=== PATIENT | male | born 1965 | race Caucasian/White ===

== ENCOUNTER 2016-10-18 09:34 | Day surgery (SDC) | payer OTHER ==
[~2016-10-18 09:34] MED LIST: Buffered Lidocaine 1% SYR 3ML* 3 ML/SYR SYRINGE INTRADERM ONE; Sodium Citrate/Citric Acid* 15 ML UDC PO ONE
[2016-10-18] MEDS ORDERED: Sodium Citrate/Citric Acid* 15 ML UDC ONE (09:37)
[2016-10-18] MEDS ORDERED: Gelfoam Sponge SIZE 100* SPONGE ONE (11:17)
[2016-10-18] MEDS ORDERED: EPINEPHrine AMP 1 MG/ML ONE (11:17)
[2016-10-18] MEDS ORDERED: Ciprofloxacin 0.3% OPTH.SOL* 2.5 ML BTL ONE (11:17)
[2016-10-18] MEDS ORDERED: Lidocain 1% EPI 1:100,000 * 30 ML MDV ONE (11:17)
[2016-10-18] MEDS ORDERED: Levalbuterol 1.25MG/0.5ML NEB ONE (11:30)
[2016-10-18] MEDS ORDERED: Midazolam* 1 MG/ML 2 ML VIAL (2 MG) ONE (11:35)
[2016-10-18] MEDS ORDERED: Lidocaine 2% PF * 5 ML VIAL ONE (11:35)
[2016-10-18] MEDS ORDERED: Propofol* 10 MG/ML 20 ML BTL IV PUSH ONE ×2 (11:35→12:56)
[2016-10-18] MEDS ORDERED: fentaNYL* 50 MCG/ML 2 ML VIAL (100 MCG VIAL) ONE (11:36)
[2016-10-18] MEDS ORDERED: fentaNYL* 50 MCG/ML 2 ML VIAL (100 MCG VIAL) IV PRN (12:51)
[2016-10-18] MEDS ORDERED: DiMENhydriNATE IV* 50 MG/ML VIAL IV PUSH PRN (12:52)
[2016-10-18] MEDS ORDERED: Dexamethasone IV* 4 MG/ML 1 ML (4 MG) ONE (13:01)
[2016-10-18 14:04] VITALS: BP 132/82
--- NOTE | 2016-10-19 03:46 | OP ---
DATE OF OPERATION: 10/18/16 [facility] DATE OF : 61 SURGEON: Errol De La Vega MD POWDER GUARD: None. ANESTHESIOLOGIST: Jesús Montes DO ANESTHESIA: General. PRE-OP DIAGNOSIS: Bilateral mixed hearing loss. POST-OP DIAGNOSIS: Left serous otitis media. OPERATIVE PROCEDURE: Left middle ear exploration. ESTIMATED BLOOD LOSS: Negligible. FINDINGS: Unexpected serous effusion in the left middle ear space. SPECIMEN: A small amount of this was collected and sent for beta-2 transferrin. INDICATION: This is a 50-year-old male with a longstanding history of progressive hearing loss, which he thinks started in his teens. He now has severe bilateral mixed hearing loss with a very large conductive component. The patient under-went a preoperative CT scan, which demonstrated normal temporal bone anatomy with well-pneumatized mastoid bones and clear middle ear spaces. The decision was made to proceed with left stapedectomy for treatment of probable otosclerosis. DESCRIPTION OF PROCEDURE: On 10/18/16, the patient was brought to the operating room. General anesthesia was induced and an LMA was placed. The patient's left ear was then draped with a 10/10 drape and Mastisol. The left ear was then prepped with Betadine and the patient was draped in the sterile fashion. A time-out was performed. The microscope was brought into the field. The left ear was irrigated to remove Betadine. The tympanic membrane was inspected. The tympanic membrane was at baseline, dull and opaque and there was no evidence of retraction. There was no cerumen in the ear canal. No indication that there was middle ear fluid present. A small injection was made with lidocaine with epinephrine into the vascular strip. A sickle knife was used to make radial incisions in the ear canal at 12 and 6 o'clock. These incisions were then connected with an angled north fork blade and then a small piece of epi-soaked Gelfoam was placed on the incisions. Once adequate time was allowed for hemostasis, the Gelfoam was removed. The Stapes retractor was brought into place and a 6-mm speculum was affixed to the Stapes retractor and the patient was positioned. A round knife was used to elevate the tympanomeatal flap. The middle ear was entered inferiorly. As soon as the tympanic annulus was elevated, straw colored fluid welled up out in the middle ear space. This was suctioned with a #3 suction. The tympanomeatal flap was elevated a little more fully superiorly. There was essentially pulsatile, though very slow reaccumulation of the serous fluid in the middle ear space. The middle ear was explored to the extent possible without removing any __ bone. There was no purulence present. There was no inflammation of the middle ear mucosa. The source of the effusion was unclear. A small amount was then harvested, aspirated with 1 cc syringe and sent as specimen for beta-2 transferrin. The reaccumulation was extremely slow but persistent and so, the decision was made to abort the intended stapedectomy. The tympanomeatal flap was placed back down. Gelfoam was placed into the medial canal along the edges of the incision and a cotton ball was placed. The patient was then returned to the care of the anesthesiologist, extubated and delivered to the PACU in stable condition. [id number] #: [id number] MTDD
== END 2016-10-18 13:55 | disposition home or self-care (01) ==
LOC: OR 09:34
PROVIDERS: ATTEND Otolaryngology
DX: H91.92 Unspecified hearing loss, left ear (principal); H65.92 Unspecified nonsuppurative otitis media, left ear
CPT/HCPCS: 86335; A9270-GY; J0171; J1100; J2250; J2704; J3010

== ENCOUNTER 2017-05-16 08:20 | Day surgery (SDC) | payer OTHER ==
[~2017-05-16 08:20] MED LIST changes: +Buffered Lidocaine 0.9% SYRIN* 5 ML/SYR SYRINGE INTRADERM ONE; -Buffered Lidocaine 1% SYR 3ML* 3 ML/SYR SYRINGE INTRADERM ONE; +Famotidine TAB* 20 MG PO ONE; +Scopolamine 1.5 mg* PATCH TRANSDERM ONE
[2017-05-16] MEDS ORDERED: Famotidine TAB* 20 MG ONE (08:29)
[2017-05-16] MEDS ORDERED: Buffered Lidocaine 0.9% SYRIN* 5 ML/SYR SYRINGE ONE (08:29)
[2017-05-16] MEDS ORDERED: Scopolamine 1.5 mg* PATCH ONE (08:29)
[2017-05-16] MEDS ORDERED: Sodium Citrate/Citric Acid* 15 ML UDC ONE (08:29)
[2017-05-16] MEDS ORDERED: EPINEPHrine AMP 1 MG/ML ONE (08:48)
[2017-05-16] MEDS ORDERED: Ciprofloxacin 0.3% OPTH.SOL* 2.5 ML BTL ONE (08:48)
[2017-05-16] MEDS ORDERED: Lidocaine 1% MPF wEPI 200,000* 30 ML SDV ONE (08:48)
[2017-05-16] MEDS ORDERED: Gelfoam Sponge SIZE 100* SPONGE ONE (08:49)
[2017-05-16] MEDS ORDERED: Bacitracin OINTMENT* 1 TUBE ONE (08:49)
[2017-05-16] MEDS ORDERED: Dexamethasone IV* 4 MG/ML 1 ML (4 MG) ONE (11:32)
[2017-05-16] MEDS ORDERED: Succinylcholine* 20 MG/ML 10 ML VIAL ONE (11:32)
[2017-05-16] MEDS ORDERED: Propofol* 10 MG/ML 20 ML BTL IV PUSH ONE (11:32)
[2017-05-16] MEDS ORDERED: Ondansetron INJ* 2 MG/ML VIAL ONE (11:32)
[2017-05-16] MEDS ORDERED: fentaNYL* 50 MCG/ML 2 ML VIAL (100 MCG VIAL) ONE ×3 (11:32→13:44)
[2017-05-16] MEDS ORDERED: Lidocaine 2% PF * 5 ML VIAL ONE (11:34)
[2017-05-16] MEDS ORDERED: DiMENhydriNATE IV* 50 MG/ML VIAL IV PUSH PRN (12:19)
[2017-05-16] MEDS: fentaNYL* 50 MCG/ML 2 ML VIAL (100 MCG VIAL) IV PRN ×2 (13:45→13:56)
[2017-05-16] MEDS: oxyCODONE/Acetamin 5/325 MG* TAB PO PRN ×2 (13:51→13:52)
[2017-05-16] MEDS ORDERED: oxyCODONE/Acetamin 5/325 MG* TAB ONE (13:51)
[2017-05-16 15:13] VITALS: BP 139/78
--- NOTE | 2017-05-17 01:53 | OP ---
DATE OF OPERATION: 05/16/17 [facility] DATE OF : 61 SURGEON: Errol De La Vega MD SAFETY TECH: None. ANESTHESIA: General. PRE-OP DIAGNOSIS: Otosclerosis, left ear. POST-OP DIAGNOSIS: Otosclerosis, left ear. OPERATIVE PROCEDURE: Left stapedectomy. ESTIMATED BLOOD LOSS: Negligible. FINDINGS: Fixed stapes consistent with otosclerosis. INDICATION: This is a 51-year-old male with longstanding progressive bilateral mixed hearing loss predominantly conductive, who presents for elective left stapedectomy. DESCRIPTION OF PROCEDURE: On 05/16/17, the patient was brought to the operating room, general anesthesia was induced and an oral endotracheal tube was placed. The patient was positioned. The left ear was prepped with Betadine. The patient was draped sterilely and a time-out was performed. The ear was suctioned free of Betadine and copiously irrigated. A 4-quadrant canal injection was made with 1% lidocaine with epinephrine. Radial incisions were then made with a sickle knife at 12 and 6 o'clock. These were drained with a posterior circumferential incision using an angled [place] blade. A piece of epinephrine-soaked Gelfoam was then left in place for approximately 5 minutes. At that point, the Gelfoam was removed. A tympanomeatal flap was elevated. The middle ear was inspected. Middle ear mucosa appeared healthy. The ossicular chain was palpated. There was fixation of the stapes. The scutum was taken down with curette to facilitate exposure of the posterior gio. The joint knife was used to separate the incudostapedial joint. Bellucci scissor was used then to severe the stapedius tendon. The stapes suprastructure was then downfractured with a curved pick and removed exposing the footplate region. The laser was brought into the field at a setting of 2 smith and 100 msec. The laser was then utilized to create a mark approximately 0.5 mm in diameter. Once the mark was created, a 0.6 mm hand occupational health physician was used to remove the matrix and create a relatively smooth circular stapedotomy. At this point, the prosthesis was brought into the field. It had been previously determined that a 4.25 mm prosthesis was optimal based on measurements taken prior to creation of the stapedotomy. A 0.5 x 4.25 mm prosthesis was brought into the field. The prosthesis was placed into the stapedotomy and hung off of the distal incus. It was crimped initially with a laser at 2 smith and then further crimped utilizing the small handheld crimping iron. The prosthesis was very tightly affixed to the distal incus without any play and it transmitted motion very well to the prosthesis which appeared to move very freely within the stapedotomy. The promontory was scratched and some blood was allowed to run around the base of the prosthesis to create a seal. A tympanomeatal flap was then laid back down. The ear was packed with ciprofloxacin-soaked Gelfoam. Cotton ball was placed. The patient was returned to the care of the anesthesiologist, extubated and delivered to the PACU in stable condition. [id number] #: [id number] MTDD
[2017-05-19] MEDS ORDERED: Scopolamine PATCH Remove* 1 NOTE MISC PATCH OFF ONE (06:00)
== END 2017-05-16 15:48 | disposition home or self-care (01) ==
LOC: OR 08:20
PROVIDERS: ATTEND Otolaryngology
DX: H80.92 Unspecified otosclerosis, left ear (principal); H90.0 Conductive hearing loss, bilateral; F17.210 Nicotine dependence, cigarettes, uncomplicated
CPT/HCPCS: 88302; A9270-GY; C1713; J0171; J0330; J1100; J2001; J2405; J2704; J3010

== ENCOUNTER 2018-04-08 13:45 | Emergency (ER) | payer OTHER ==
[2018-04-08 14:03] VITALS: BP 126/72
--- NOTE | 2018-04-08 14:55 | UC ---
Throat Pain/Nasal Raf HPI - HPI Summary HPI Summary: 52-year-old male comes in to clinic today with a chief complaint of cough and chest congestion for greater than 10 days. He is a smoker. His sputum is yellow in color. He has been wheezing. He usually else's cough syrup which did help with the coughing. No recent fevers. He comes in because he is not getting any better after 10 days. - History of Current Complaint Chief Complaint: UCRespiratory Stated Complaint: RESP COMPLAINT Time Seen by Provider: 04/08/18 14:39 Pain Intensity: 0 - Allergies/Home Medications Allergies/Adverse Reactions: Allergies Allergy/AdvReac Type Severity Reaction Status Date / Time No Known Allergies Allergy Verified 04/08/18 14:03 PMH/Surg Hx/FS Hx/Imm Hx Respiratory History: COPD - Surgical History Surgical History: Yes Surgery Procedure, Year, and Place: tonsillectomy 13 years old. left inguinal hernia repair approx 1981-. left middle ear exploration 10/2016 - Family History Known Family History: Positive: Unknown - Pt cannot recall a significant FHx, Diabetes - Social History Alcohol Use: Weekly Substance Use Type: None Smoking Status (MU): Current Every Day Smoker Type: Cigarettes Amount Used/How Often: 1ppd smoked for 30 years Household Exposure Type: Cigarettes Review of Systems Constitutional: Negative Skin: Negative Eyes: Negative ENT: Sore Throat, Nasal Discharge, Sinus Congestion Respiratory: Shortness Of Breath, Cough, Other - wheezing Cardiovascular: Negative Gastrointestinal: Negative Motor: Negative Neurovascular: Negative Musculoskeletal: Negative Neurological: Negative Psychological: Negative Is Patient Immunocompromised?: No All Other Systems Reviewed And Are Negative: Yes Physical Exam Triage Information Reviewed: Yes Appearance: Well-Appearing, No Pain Distress, Well-Nourished Vital Signs: Initial Vital Signs Temp 98.4 F 04/08/18 14:00 Pulse 73 04/08/18 14:00 Resp 22 04/08/18 14:00 BP 126/72 04/08/18 14:00 Pulse Ox 97 04/08/18 14:00 Vital Signs Reviewed: Yes Eye Exam: Normal Eyes: Positive: Conjunctiva Clear ENT: Positive: Pharynx normal, Nasal congestion, Nasal drainage, TMs normal Neck exam: Normal Neck: Positive: Supple Respiratory: Positive: Lungs clear, Normal breath sounds, No respiratory distress Cardiovascular: Positive: RRR Musculoskeletal Exam: Normal Musculoskeletal: Positive: Strength Intact, ROM Intact Neurological Exam: Normal Neurological: Positive: Alert, Muscle Tone Normal Psychological Exam: Normal Psychological: Positive: Age Appropriate Behavior Skin Exam: Normal Throat Pain/Nasal Course/Dx - Differential Dx/Diagnosis Provider Diagnoses: BRONCHITIS WITH COPD Discharge - Sign-Out/Discharge Documenting (check all that apply): Patient Departure All imaging exams completed and their final reports reviewed: No Studies - Discharge Plan Condition: Stable Disposition: HOME Prescriptions: Albuterol HFA INHALER* [Ventolin HFA Inhaler*] 2 puff INH Q4H PRN #1 mdi PRN Reason: Wheezing Azithromyxin PAUL (NF) [Z-Paul (Zithromax) 250 mg tabs #6] 2 tab PO .TODAY, THEN 1 DAILY #6 tab GuaiFENesin DM* [Robitussin DM*] 10 ml PO Q4H PRN #180 ml PRN Reason: Cough Patient Education Materials: Acute Bronchitis (ED), COPD (Chronic Obstructive Pulmonary Disease) (ED), How to Stop Smoking (ED) Referrals: Bradley Douglass MD [Primary Care Provider] - Additional Instructions: FOLLOW UP WITH YOUR DOCTOR IF NOT COMPLETELY IMPROVED. GET RECHECKED FOR ANY WORSENING OF YOUR CONDITION OR QUESTIONS OR CONCERNS. - Billing Disposition and Condition Condition: STABLE Disposition: Home
== END 2018-04-08 15:13 | disposition home or self-care (01) ==
LOC: UCEAST 13:45
DX: J44.9 Chronic obstructive pulmonary disease, unspecified (principal); F17.210 Nicotine dependence, cigarettes, uncomplicated
CPT/HCPCS: 99212; G0463

== ENCOUNTER 2018-12-17 12:49 | Emergency (ER) | payer OTHER ==
[2018-12-17] MEDS ORDERED: Acetaminophen TAB* 325 MG PO ONE (14:14)
--- NOTE | 2018-12-17 14:15 | ED ---
Upper Extremity Pain - HPI Summary HPI Summary: Patient is a 53-year-old male who presents emergency department for a left arm injury that occurred yesterday. Patient states he was standing in a [place] which is left on a wet rock and landed onto his forearms. Denies head injury or loss of consciousness. Pain to left forearm persist today. Patient denies past medical history. Associated symptoms of superficial abrasions bilateral arms. Patient unaware of his last tetanus immunization. - History of Current Complaint Chief Complaint: EDExtremityUpper Stated Complaint: POSSIBLE LEFT ARM FRACTURE PER PATIENT Time Seen by Provider: 12/17/18 13:49 Hx Obtained From: Patient - Allergies/Home Medications Allergies/Adverse Reactions: Allergies Allergy/AdvReac Type Severity Reaction Status Date / Time No Known Allergies Allergy Verified 10/07/18 10:50 PMH/Surg Hx/FS Hx/Imm Hx Previously Healthy: Yes Endocrine/Hematology History: Denies: Hx Diabetes Cardiovascular History: Denies: Hx Hypertension, Hx Pacemaker/ICD Respiratory History: Denies: Hx Asthma History: Denies: Hx Renal Disease Sensory History: Reports: Hx Contacts or Glasses - glasses, Hx Hearing Aid Opthamlomology History: Reports: Hx Contacts or Glasses - glasses Neurological History: Reports: Other Neuro Impairments/Disorders - DJD Psychiatric History: Reports: Hx Anxiety Denies: Hx Panic Disorder - Cancer History Hx Chemotherapy: No - Surgical History Surgery Procedure, Year, and Place: tonsillectomy 13 years old. left inguinal hernia repair approx 1981-. left middle ear exploration 10/2016 Hx Anesthesia Reactions: No Infectious Disease History: No Infectious Disease History: Denies: Traveled Outside the [place] in Last 30 Days - Family History Known Family History: Positive: Unknown - Pt cannot recall a significant FHx, Diabetes, Non-Contributory - Social History Occupation: Employed Full-time Lives: With Family Alcohol Use: Weekly Substance Use Type: Reports: None Hx Tobacco Use: Yes Smoking Status (MU): Current Every Day Smoker Type: Cigarettes Amount Used/How Often: 1ppd smoked for 30 years Review of Systems Positive: Other - pain left forearm Positive: Bruising Neurological: Negative Negative: Weakness, Paresthesia, Numbness All Other Systems Reviewed And Are Negative: Yes Physical Exam Triage Information Reviewed: Yes Vital Signs On Initial Exam: Initial Vitals Temp Pulse Resp BP Pulse Ox 96.5 F 90 18 141/96 96 12/17/18 12:58 12/17/18 12:58 12/17/18 12:58 12/17/18 12:58 12/17/18 12:58 Vital Signs Reviewed: Yes Appearance: Positive: Well-Appearing - Pt. sitting on bed in NAD. SO present. Skin: Positive: Warm, Dry Head/Face: Positive: Normal Head/Face Inspection Eyes: Positive: Normal, EOMI, GURVINDER Neck: Positive: Supple Musculoskeletal: Positive: Other - superficial abrasions to bilateral forearms. Pain to distal forearm. Good radial pulse. Neurological: Positive: Normal, CN Intact II-III Psychiatric: Positive: Affect/Mood Appropriate Procedures - Splinting Left Upper Extremity Location: applie by myself Hand-Made Type: orthoglass Splint: sugar-tong Pre-Proc Neuro Vasc Exam: normal Post-Proc Neuro Vasc Exam: normal Diagnostics - Vital Signs Vital Signs Temp Pulse Resp BP Pulse Ox 12/17/18 12:58 96.5 F 90 18 141/96 96 - Laboratory Lab Statement: Any lab studies that have been ordered have been reviewed, and results considered in the medical decision making process. Course/Dx - Course Course Of Treatment: X-ray shows a mildly comminuted nondisplaced fracture the distal ulna. Patient was given a dose of pain medication and a small prescription. MACHINE HEEL BUILDER was reviewed and no red flags noted. Ulnar gutter splint and sling placed. Patient to call the orthopedic clinic today for close follow- up appointment. To ice and elevate intermittently. Patient understands and agrees with plan. - Diagnoses Differential Diagnosis/HQI/PQRI: Positive: Contusion, Fracture (Closed), Strain , Sprain Provider Diagnoses: Ulnar shaft fracture Discharge - Sign-Out/Discharge Documenting (check all that apply): Patient Departure Patient Received Moderate/Deep Sedation with Procedure: No - Discharge Plan Condition: Good Disposition: HOME Prescriptions: Hydrocodone/Acetaminophen [Hydrocodone-Acetamin 5-325 mg] 1 each PO Q6H #8 tablet MDD 4 Patient Education Materials: Arm Fracture in Adults (ED) Forms: *Work Release Referrals: Jesus Worthy MD [Medical Doctor] - Adina Astorga MD [Primary Care Provider] - As Soon As Possible Additional Instructions: Schedule an appointment with orthopedics as soon as possible Keep splint in place Ice and elevate intermittently Pain medication as directed Return to ER if symptoms change or worse - Billing Disposition and Condition Condition: GOOD Disposition: Home
[2018-12-17] MEDS ORDERED: Tetan/Diph/Pertus SYR(Tdap)* 0.5 ML SYR(BOOSTRIX) use SYR IM ONE (14:19)
[2018-12-17] MEDS ORDERED: HYDROcodone/ACETAMIN 5-325 MG* 1 TAB PO ONE (14:24)
[2018-12-17 15:15] VITALS: BP 146/83
== END 2018-12-17 15:14 | disposition home or self-care (01) ==
LOC: ED 12:49
DX: S52.202A Unspecified fracture of shaft of left ulna, initial encounter for closed fracture (principal); W01.0XXA Fall on same level from slipping, tripping and stumbling without subsequent striking against object, initial encounter; Y92.89 Other specified places as the place of occurrence of the external cause; Z23 Encounter for immunization; F17.210 Nicotine dependence, cigarettes, uncomplicated
CPT/HCPCS: 90471; 90715; 99282; A9270-GY

== ENCOUNTER → 2019-01-04 08:53 | Day surgery (SDC) | payer OTHER ==
[~2019-01-04 08:53] MED LIST changes: +Acetaminophen TAB* 325 MG ONE; +Acetaminophen TAB* 325 MG PO ONE; -Buffered Lidocaine 0.9% SYRIN* 5 ML/SYR SYRINGE INTRADERM ONE; +Buffered Lidocaine 1% SYRIN* 1 ML/SYRINGE INTRADERM ONE; +Bupivacaine 0.25% SDV PF* 10 ML VIAL INJ ONE; +Dexamethasone IV* 4 MG/ML 1 ML (4 MG) ONE; +DiMENhydriNATE IV* 50 MG/ML VIAL IV PUSH PRN; +Famotidine IV* 10 MG/ML 2 ML (20 mg) ONE; -Famotidine TAB* 20 MG PO ONE; +Gabapentin CAP(*) 300 MG ONE; +Gabapentin CAP(*) 300 MG PO ONE; +Ketorolac INJ* 30 MG/ML 1 ML VIAL ONE; +Lactated Ringers 1000 ML Bag* 1,000 ML IV SCH; +Levalbuterol 0.63MG/3ML NEB* UNIT OF USE INH PRN; +Lidocaine 2% PF * 5 ML VIAL ONE; +Midazolam* 1 MG/ML 5 ML VIAL (5 MG) ONE; +Naloxone* 0.4 MG/ML 1 ML VIAL IV PRN; +Ondansetron INJ* 2 MG/ML VIAL IV PRN; +PROCHLORPERAZINE INJ 5 MG/ML 2 ML VIAL IV PRN; +Propofol* 10 MG/ML 20 ML BTL ONE; -Scopolamine 1.5 mg* PATCH TRANSDERM ONE; -Sodium Citrate/Citric Acid* 15 ML UDC PO ONE; +ceFAZolin 2 GM in NS PREMIX(*) 2 GM/100 ML BAG IVPB ONE; +diPHENhydraMINE IV* 50 MG/ML 1 ml VIAL (BENADRYL) IV PRN; +fentaNYL* 50 MCG/ML 2 ML VIAL (100 MCG VIAL) ONE
[2019-01-04] MEDS: fentaNYL* 50 MCG/ML 2 ML VIAL (100 MCG VIAL) IV PRN ×4 (14:11→15:04)
[2019-01-04 15:28] VITALS: BP 143/97
--- NOTE | 2019-01-04 19:37 | OP ---
DATE OF OPERATION: 01/04/19 - [facility] DATE OF : 61 SURGEON: Reza Dozier MD MARINE TECHNICIAN: BERHANE Shabazz. An assistant gm of content & delivery was needed for the procedure to aid in positioning of the arm and retraction. ANESTHESIOLOGIST: Dr. Contreras. ANESTHESIA: General. PRE-OP DIAGNOSIS: Left displaced distal ulnar shaft fracture. POST-OP DIAGNOSIS: Left displaced distal ulnar shaft fracture. OPERATIVE PROCEDURE: Open reduction and internal fixation, left distal ulnar shaft fracture. INDICATIONS: Sherif had a fracture that displaced on his followup x-rays a couple weeks after the fracture. We talked about risks and benefits. I did recommend aligning up a bit better. He wants to proceed. ESTIMATED BLOOD LOSS: 2 mL. COMPLICATIONS: None. FINDINGS: See above and below. DESCRIPTION OF PROCEDURE: Sherif was seen in the preoperative holding area. The correct site, side, and procedure were identified. We came back to the operating room where the arm was prepped and draped in the usual fashion and a time-out was performed. The arm was exsanguinated with the Esmarch and the tourniquet was inflated to 250 mmHg. I made a longitudinal incision over the distal ulna, subcutaneous border. Dissection was carried down. The sensory nerve was retracted palmarly. I made an incision through the periosteum and then subperiosteal dissection was used to expose the bone. The fracture site was cleaned of all its soft callus and interposed soft tissue. Once I had mobilized the fragments and cleaned them of the fracture, I just went ahead and reduced it and held it in place with a point reduction clamp. A 2.4-mm lag screw was then placed from dorsal to volar across the obliquity. I removed the point reduction clamps. I then contoured a 2.7-mm plate from the [employer] locking modular mini set and placed that along the ulnar border. It was held in place and secured distally and proximally. Distally, I used some locking screws after the first cortical screw and proximally, they were all cortical screws. I then took a 2.4-mm recon plate of the same set and cut it to size and then placed it and secured it all cortical screws, a couple distally and a few proximally. At this point, everything was looking very good. The fracture was extremely stable, was anatomically reduced. I confirmed the screw lengths and everything on mini C- arm fluoroscopy. The wound was irrigated out. The periosteum was closed over the fracture with 3-0 Vicryl suture. The skin was closed with 3-0 Monocryl and Steri-Strips. 0.25% plain Marcaine was infiltrated all about the operative area. The wound was dressed and a sugar-tong splint was applied. He was taken to the recovery room in stable condition. [id number]/CPS #: [id number] EDI
== END | disposition home or self-care (01) ==
LOC: OR 08:53
PROVIDERS: ATTEND Orthopaedic Surgery Hand Surgery
DX: S52.692A Other fracture of lower end of left ulna, initial encounter for closed fracture (principal); F17.210 Nicotine dependence, cigarettes, uncomplicated; J45.909 Unspecified asthma, uncomplicated; R03.0 Elevated blood-pressure reading, without diagnosis of hypertension; W01.198A Fall on same level from slipping, tripping and stumbling with subsequent striking against other object, initial encounter; Y93.01 Activity, walking, marching and hiking; Y92.89 Other specified places as the place of occurrence of the external cause; J44.9 Chronic obstructive pulmonary disease, unspecified; F31.9 Bipolar disorder, unspecified
CPT/HCPCS: 76000; A9270-GY; C1713; C1776; J0690; J1100; J1885; J2250; J2704; J3010; J3490

== ENCOUNTER 2019-05-25 13:36 | Inpatient (IN) | payer SELFPAY ==
[2019-05-25] MEDS ORDERED: NS 0.9% 1000 ML** 1,000 ML IV ONE ×2 (14:00→14:54)
[2019-05-25] MEDS ORDERED: Acetaminophen TAB* 325 MG PO ONE (14:00)
--- NOTE | 2019-05-25 14:00 | ED ---
Influenza-Like Illness - HPI Summary HPI Summary: The patient is a 53 y/o M presenting to [facility] with a chief complaint of constant flu-like symptoms over the last two weeks. He reports that he has been experiencing body aches, temporal headaches, right anterior chest pain with cough, N/V/D, decreased appetite, abdominal discomfort, and sleep disturbance secondary to pain. He denies any subjective fevers, sore throat, ear ache, rhinorrhea, or SOB. Currently, his symptoms are rated 8/10 in severity. He has only use cough syrup over the last two weeks without any relief of the symptoms. He is unsure if anyone at work has similar symptoms. No flu vaccination this year. No known dx; T&A, plates in left wrist, hernia repair. Current every day smoker, daily EtOH, no substance use. Medications reviewed. Allergies noted. - History of Current Complaint Chief Complaint: EDFluSymptoms Time Seen by Provider: 05/25/19 13:47 Hx Obtained From: Patient Onset/Duration: Lasting Weeks - two, Still Present Severity: Moderate Associated Signs & Symptoms: Fever, Myalgia, Cough, Headache, Vomiting, Diarrhea - Allergy/Home Medications Allergies/Adverse Reactions: Allergies Allergy/AdvReac Type Severity Reaction Status Date / Time No Known Allergies Allergy Verified 05/25/19 13:42 PMH/Surg Hx/FS Hx/Imm Hx Endocrine/Hematology History: Denies: Hx Bone Marrow Disease, Hx Diabetes, Hx Sickle Cell Disease, Hx Thyroid Disease, Hx Anemia Cardiovascular History: Denies: Hx Hypertension, Hx Pacemaker/ICD, Other Cardiovascular Problems/ Disorders Respiratory History: Denies: Hx Asthma, Hx Sleep Apnea, Other Respiratory Problems/Disorders GI History: Denies: Hx Gastroesophageal Reflux Disease, Hx Ulcer, Other GI Disorders History: Denies: Hx Kidney Infection, Hx Kidney Stones, Hx Renal Disease, Other Problems/Disorders Musculoskeletal History: Denies: Other Musculoskeletal History Sensory History: Reports: Hx Contacts or Glasses - glasses, Hx Hearing Aid - RIGHT EAR Denies: Hx Cataracts, Hx Glaucoma Opthamlomology History: Reports: Hx Contacts or Glasses - glasses Denies: Hx Cataracts, Hx Glaucoma Neurological History: Reports: Other Neuro Impairments/Disorders - "PINCHED NERVE IN NECK AND LOWER BACK"" Psychiatric History: Reports: Hx Anxiety - NO MEDS Denies: Hx Panic Disorder - Cancer History Hx Chemotherapy: No - Surgical History Surgical History: Yes Surgery Procedure, Year, and Place: tonsillectomy 13 years old. left inguinal hernia repair approx 1981-. left middle ear exploration 10/2016 Hx Anesthesia Reactions: No Infectious Disease History: No Infectious Disease History: Denies: Hx Hepatitis, Traveled Outside the [place] in Last 30 Days - Family History Known Family History: Positive: Diabetes - Social History Alcohol Use: Daily Alcohol Amount: 2-3 beers daily Substance Use Type: Reports: None Substance Use Comment - Amount & Last Used: denies 05/25/19 Hx Tobacco Use: Yes Smoking Status (MU): Heavy Every Day Tobacco Smoker Type: Cigarettes Amount Used/How Often: 1ppd smokeS for 30 years Review of Systems Positive: Other - sleep disturbance with symptoms. Negative: Fever Negative: Sore Throat, Ear Ache, Nasal Discharge Positive: Chest Pain - right anterior with cough Positive: Cough. Negative: Shortness Of Breath Positive: Abdominal Pain - diffuse discomfort, Vomiting, Diarrhea, Nausea, Other - decreased appetite Positive: Other - body aches Positive: Headache - temporal All Other Systems Reviewed And Are Negative: Yes Physical Exam - Summary Physical Exam Summary: Constitutional: Well-developed, Well-nourished, Alert. (-) Distressed Skin: Warm, Dry HENT: Normocephalic; Atraumatic; Mild tonsilar erythema Eyes: Conjunctiva normal Neck: Musculoskeletal ROM normal neck. (-) JVD, (-) Stridor, (-) Tracheal deviation Cardio: Rhythm regular, rate normal, Heart sounds normal; Intact distal pulses; Radial pulses are 2+ and symmetric. (-) Murmur Pulmonary/Chest wall: Effort normal. (-) Respiratory distress, (-) Wheezes, (-) Rales Abd: Soft, (+) RUQ tenderness, (-) Distension, (-) Guarding, (-) Rebound Musculoskeletal: (-) Edema Lymph: (-) Cervical adenopathy Neuro: Alert, Oriented x3 Psych: Mood and affect Normal Triage Information Reviewed: Yes Vital Signs On Initial Exam: Initial Vitals Temp Pulse Resp BP Pulse Ox 100.1 F 129 20 126/97 97 05/25/19 13:38 05/25/19 13:38 05/25/19 13:38 05/25/19 13:38 05/25/19 13:38 Vital Signs Reviewed: Yes Procedures - Sedation Patient Received Moderate/Deep Sedation with Procedure: No Diagnostics - Vital Signs Vital Signs Temp Pulse Resp BP Pulse Ox 05/25/19 13:38 100.1 F 129 20 126/97 97 - Laboratory Result Diagrams: 05/25/19 14:05 05/25/19 14:05 Lab Statement: Any lab studies that have been ordered have been reviewed, and results considered in the medical decision making process. - Radiology CXR Radiology Interpretation Completed By: Radiologist Summary of Radiographic Findings: Impression: 1. RIGHT upper lobe pneumonia. Radiographic follow-up after therapy suggested to assess for resolution and exclude an underlying neoplastic process. 2. Stigmata of obstructive lung disease. ED physician has reviewed this imaging report. - Ultrasound Gallbladder US Ultrasound Interpretation Completed By: Radiologist Summary of Ultrasound Findings: Impression: 1. There is a focal area of increased echogenicity within the gallbladder suggestive of sludge or a nonshadowing calculus. There is mild gallbladder wall thickening which is likely due to incomplete distention less likely cholecystitis. 2. The liver is increased echogenicity consistent with diffuse hepatocellular disease most commonly associated with fatty infiltration. ED physician has reviewed this imaging report. Re-Evaluation - Re-Evaluation First Eval Re-Evaluation Time: 16:18 Comment: We discussed imaging results. HR of 99-100 bpm; we will ambulate to see what happens to HR and SpO2 and send urine for legionella. Second Eval Re-Evaluation Time: 16:25 Change: Worse Comment: Ambulates and HR goes into 1teens. Discussed plan for admission. Patient agreeable. Flu Symptom Course/Dx - Course Course Of Treatment: Patient is here with a right upper lobe pneumonia. Upon arrival, patient was tachypneic and tachycardic. Patient had a lactate of 2.3. Patient is given 2 L IV fluids with improvement in his heart rate. However, when patient ambulated he became tachycardic again. Patient did have an elevated T bili so a ultrasound performed which showed gallstones with no evidence of cholecystitis. Patient is hyponatremic at 130. Given patient's GI symptoms, pneumonia, hyponatremia, a Legionella antigen was sent. Patient was given Rocephin and azithromycin. Patient is admitted to hospitalist - Diagnoses Provider Diagnoses: Right upper lobe pneumonia, Hyponatremia, Elevated bilirubin, Gallstones, Tachycardia - Physician Notifications Discussed Care Of Patient With: Ainbal Solis - hospitalist Time Discussed With Above Provider: 17:00 Instructed by Provider To: Other - I discussed the patient's case with Dr. Solis , who accepts the patient for admission. Discharge ED - Sign-Out/Discharge Documenting (check all that apply): Patient Departure - Patient accepted for admission by Dr. Solis. - Discharge Plan Condition: Stable Disposition: ADMITTED TO [facility] Referrals: Adina Astorga MD [Primary Care Provider] - - Billing Disposition and Condition Condition: STABLE Disposition: Admitted to [facility] - Attestation Statements Document Initiated by Gustavoibe: Yes Documenting Scribe: Chloe Byrd Provider For Whom Vu is Documenting (Include Credential): Dr. Aldo Cabello MD Scribe Attestation: Chloe Rothman scribed for Dr. Aldo Cabello MD on 05/25/19 at 1711. Scribe Documentation Reviewed: Yes Provider Attestation: The documentation as recorded by the Chloe bajwa accurately reflects the service I personally performed and the decisions made by me, Dr. Aldo Cabello MD Status of Scribe Document: Viewed
[2019-05-25 14:38] LABS: Albumin 3.2 g/dL (3.2-5.2); Albumin/Globulin Ratio 0.9 (1-3); BUN/Creatinine Ratio 13.1 (8-20); Calcium 8.3 mg/dL (8.6-10.3); EGFR African American 74.6 (>60); EGFR Non-African American 61.7 (>60); Globulin 3.5 g/dL (2-4); Potassium 3.2 mmol/L (3.5-5.0); Total Bilirubin 2.8 mg/dL (0.2-1.0); Total Protein 6.7 g/dL (6.4-8.9)
[2019-05-25 14:56] LABS: Hematocrit 42 % (42-52); Hemoglobin 14.5 g/dL (14.0-18.0); Mean Corpuscular HGB Conc 35 g/dL (31-36); Mean Corpuscular Hemoglobin 39 pg (27-31); Mean Corpuscular Volume 112 fL (80-94); Mean Platelet Volume 7.1 fL (7.4-10.4); Platelet Count 387 10^3/uL (150-450); Red Blood Count 3.73 10^6 /uL (4.18-5.48); Red Cell Distribution Width 19 % (10-15); White Blood Count 28.6 10^3/uL (3.5-10.8)
[2019-05-25 14:59] LABS: Rapid Strep Molecular Negative (Negative)
[2019-05-25 15:08] LABS: Polychromasia 1+
[2019-05-25 15:08] LABS: Influenza A Molecular NEGATIVE (Negative); Influenza B Molecular NEGATIVE (Negative)
[2019-05-25 15:09] LABS: ABS Basophils 0.1 10^3/ul (0-0.2); ABS Lymphocytes 0.7 10^3/ul (1.0-4.8); ABS Monocytes 1.2 10^3/ul (0-0.8); ABS Neutrophils 26.7 10^3/ul (1.5-7.7); Lymphocyte % 2.3 %
[2019-05-25] MEDS ORDERED: Azithromycin 500 mg/250 ml NS 500 MG/250 ML BAG IVPB ONE (16:17)
[2019-05-25] MEDS ORDERED: cefTRIAXone(*) 1 GM in NS 0.9% 50 ML* 50 ML IVPB ONE (16:17)
[2019-05-25] MEDS ORDERED: LORazepam TAB(*) 1 MG PO PRN (18:02)
[2019-05-25] MEDS ORDERED: NS 0.9% 1000 ML** 1,000 ML IV SCH (18:15)
[2019-05-25] MEDS ORDERED: Nicotine* 2MG (FRUIT FLAVOR) GUM PO PRN (18:19)
[2019-05-25 18:23] LABS: Magnesium 1.1 mg/dL (1.9-2.7)
[2019-05-25] MEDS ORDERED: Magnesium Sulf 4 GM/100 ML IV* 4,000 MG/100 ML BAG IVPB ONE ×2 (18:33)
[2019-05-25] MEDS ORDERED: Magnesium Sulf 4 GM/100 ML IV* 4,000 MG/100 ML BAG IVPB SCH (19:00)
[2019-05-25] MEDS: KCL 20 MEQ/100 ML IVPREMIX* 20 MEQ/100 ML BAG IV SCH (19:01)
[2019-05-25] MEDS ORDERED: Albuterol 2.5 MG/3 ML NEB.SOL* (0.083%) INH PRN (19:11)
--- NOTE | 2019-05-25 19:57 | HP ---
AMENDED REPORT NOW INCLUDES DESIGNATED COSIGNER CONTINUATION ADDENDUM NOW INCLUDED ON THIS REPORT ADMISSION HISTORY AND PHYSICAL: DATE OF ADMISSION: 05/25/19. PRIMARY CARE PROVIDER: Dr. Astorga at [facility]. PROVIDER: Karlos Cabello NP. ATTENDING PHYSICIAN: Dr. Solis.* (DICTATED BY KARLOS CABELLO NP) CHIEF COMPLAINT: Cough, abdominal pain, nausea, vomiting, diarrhea. HISTORY OF PRESENT ILLNESS: This is a 53-year-old male with a past medical history significant for anxiety, depression, and COPD, who came to the emergency room on 05/25/19 for a 2-week history of body aches, temporal headaches with coughing, right anterior chest pain, frequent coughing, nausea, vomiting, diarrhea, decreased appetite, abdominal discomfort, and sleep disturbances due to pain. The patient has no history of sick contacts and he reported having bowel movements in every 15 minute intervals off and on for the past 2 weeks and has been liquid. He states that he feels like he is going about 30 times a day, though he is not sure of the exact amount. He had been taking [id number] Imodium, which has alleviated the symptoms somewhat. As far as the anterior right chest pain that started around the same time as the coughing, it is exacerbated by coughing and is reproducible with pressure. When he coughs, he is bringing up white yellowish sputum. Hospitalists were asked to evaluate the patient for admission. In the emergency room, labs were drawn. Chest x-ray performed. Gallbladder ultrasound performed. EKG pending. The patient stated that he felt awful. He has been able to drink about 5 to 7 16-ounce bottles of water a day, though appetite has been decreased, and has not had an alcoholic drink in 4 days, drinks 2 to 3 beers on a daily basis normally. PAST MEDICAL HISTORY: Anxiety, GI bleed, migraines, COPD, anemia, benign neoplasm of the colon, and "pinched nerve in the neck and lower back." PAST SURGICAL HISTORY: Tonsillectomy, left inguinal hernia repair, left middle ear exploration, and left arm ORIF with plating. HOME MEDICATIONS: None. ALLERGIES: No known drug allergies. FAMILY HISTORY: Significant for diabetes, heart disease, hypertension, stroke, and cancer. SOCIAL HISTORY: He lives with his significant other, drinks 2 to 3 beers daily , smokes 1 pack per day for the past 30 years. Denies any recreational substance use. He works at [employer] in the [employer] room. REVIEW OF SYSTEMS: An 11-point system review was performed and it was positive for body aches, temporal headaches, right anterior chest pain, cough, nausea, vomiting, diarrhea, poor appetite, abdominal discomfort, sleep disturbances, bringing up white yellow sputum, and also positive for shortness of breath with exertion. PHYSICAL EXAMINATION GENERAL: This is a well-developed gentleman seen resting in the stretcher, slightly toxic in appearance. VITAL SIGNS: Temperature 97.9 Fahrenheit, 100 pulse, 20 resps, 97% oxygen on room air, 116/83 blood pressure. HEENT: Eyes: Conjunctivae pink and moist. PERRLA. EOMs intact. ENT: Mucous membranes dry. Oropharynx clear. NECK: Supple. CARDIAC: S1, S2 present. Heart rate regular. No murmurs, gallops or rubs appreciated. CONTINUATION ADDENDUM: PHYSICAL EXAMINATION LUNGS: Clear in the bases, scattered rhonchi throughout the upper lobe bilaterally on room air, mild accessory muscle use noted. ABDOMEN: Soft, nontender, nondistended with positive bowel sounds x4. MUSCULOSKELETAL: No clubbing or cyanosis of the digits, moves all extremities. SKIN: No lesions or rashes noted. NEUROLOGIC: No focal deficits appreciated. Sensation is intact to light touch. PSYCH: Alert and oriented x3. Thought content organized. LABORATORY DATA: Pertinent lab data: White blood cell count 28.6, RBC 3.73, MCV 112, MCH 39, RDW 19, MPV 7.1. Sodium 130, potassium 3.2, chloride 94, creatinine 1.22, glucose 140, lactic acid 2.3 which is decreased to 1.1, calcium 8.3, magnesium 1.1, total bilirubin 2.8 and albumin/globulin ratio 0.9, negative for influenza A, B or group A strep. DIAGNOSTIC STUDIES: Gallbladder ultrasound showed there is a focal area of increased echogenicity within the gallbladder suggestive of sludge or non- shadowing calculus. There is mild gallbladder wall thickening which is likely due to incomplete distension, less likely cholecystitis and the liver has increased echogenicity consistent with diffuse hepatocellular disease, most commonly associated with fatty infiltrate. Chest x-ray showed elevated lung volumes and patchy reflection of interstitial markings, alveolar consolidation in the distribution of the anterior and apical segments of the right upper lobe consistent with pneumonia given the clinical context, negative for pleural effusion or pneumothorax. The heart, pulmonary vascular, and mediastinal contours are unremarkable. This is consistent with right upper lobe pneumonia and stigmata of an obstructive lung disease. Awaiting EKG results. ASSESSMENT AND PLAN: My impression is that this is a 53-year-old male with a past medical history that is significant for chronic obstructive pulmonary disease, anxiety, and depression, who was admitted on 05/25/19 for right upper lobe pneumonia. 1. Right upper lobe pneumonia with severe sepsis. The patient has received 2 liters of fluid bolus in the emergency room. Lactic acid has decreased and remains normotensive, does not require ICU for vasopressins. Started on ceftriaxone and azithromycin, offered guaifenesin with codeine. We will recheck CBC and CMP in the a.m. 2. Hypomagnesemia. Levels upon admission were 1.1, repleted with 4 mg of IV magnesium in the emergency room, ordered another 4 mg IV for tonight. We will recheck magnesium level at 10 a.m. tonight. This is probably secondary to the frequent diarrhea that he has had. 3. Hypokalemia. Level is 3.2. We will replete with 3 runs of IV potassium as the patient is unable to tolerate p.o. at the moment. We will recheck BMP in the a.m. The patient is not having any palpitations or heart arrhythmias at this time. 4. Diarrhea. The patient has been experiencing this for the past 2 weeks around the same time onset of his other symptoms, has taken loperamide at home with good results. We will continue that here. 5. Nicotine dependence. Normally smokes a pack a day, offered nicotine patch and nicotine gum. Stressed the importance of smoking cessation to prevent progression of is chronic obstructive pulmonary disease and to decrease irritation of his lungs while he is recovering from pneumonia as well as the other known health benefits of quitting smoking. 6. EtOH use. The patient states that he drinks no more than about 3 beers a day. Has not had anything in 4 days. We do not feel that the patient requires [place] protocol at this time though I have ordered lorazepam twice a day as needed for any signs or symptoms of withdrawal. 7. DVT prophylaxis. Lovenox. 8. Code status. Full code. 9. Condition of the patient is guarded. 10. Disposition. Admit inpatient to [address] [place] [address]. TIME SPENT: Time spent with the patient is about 60 minutes with half of that spent [id number]. KARLOS CABELLO, MAR [id number]/CPS #: [id number]/CPS #: [id number] Originally Esigned by Karlos Cabello NP 05/25/194 [facility]ITALClif[facility]
--- NOTE | 2019-05-25 20:30 | HP ---
ADMISSION HISTORY AND PHYSICAL: ADDENDUM: PHYSICAL EXAMINATION LUNGS: Clear in the bases, scattered rhonchi throughout the upper lobe bilaterally on room air, mild accessory muscle use noted. ABDOMEN: Soft, nontender, nondistended with positive bowel sounds x4. MUSCULOSKELETAL: No clubbing or cyanosis of the digits, moves all extremities. SKIN: No lesions or rashes noted. NEUROLOGIC: No focal deficits appreciated. Sensation is intact to light touch. PSYCH: Alert and oriented x3. Thought content organized. LABORATORY DATA: Pertinent lab data: White blood cell count 28.6, RBC 3.73, MCV 112, MCH 39, RDW 1 9, MPV 7.1. Sodium 130, potassium 3.2, chloride 94, creatinine 1.22, glucose 140, lactic acid 2.3 wh ich is decreased to 1.1, calcium 8.3, magnesium 1.1, total bilirubin 2.8 and albumin/globulin ratio 0 .9, negative for influenza A, B or group A strep. DIAGNOSTIC STUDIES: Gallbladder ultrasound showed there is a focal area of increased echogenicity wi thin the gallbladder suggestive of sludge or non-shadowing calculus. There is mild gallbladder wall thickening which is likely due to incomplete distension, less likely cholecystitis and the liver has increased echogenicity consistent with diffuse hepatocellular disease, most commonly associated with fatty infiltrate. Chest x-ray showed elevated lung volumes and patchy reflection of interstitial mar kings, alveolar consolidation in the distribution of the anterior and apical segments of the right u pper lobe consistent with pneumonia given the clinical context, negative for pleural effusion or pneu mothorax. The heart, pulmonary vascular, and mediastinal contours are unremarkable. This is consist ent with right upper lobe pneumonia and stigmata of an obstructive lung disease. Awaiting EKG result s. ASSESSMENT AND PLAN: My impression is that this is a 53-year-old male with a past medical history th at is significant for chronic obstructive pulmonary disease, anxiety, and depression, who was admitte d on 05/25/19 for right upper lobe pneumonia. 1. Right upper lobe pneumonia with severe sepsis. The patient has received 2 liters of fluid bolus in the emergency room. Lactic acid has decreased and remains normotensive, does not require ICU for vasopressins. Started on ceftriaxone and azithromycin, offered guaifenesin with codeine. We will re check CBC and CMP in the a.m. 2. Hypomagnesemia. Levels upon admission were 1.1, repleted with 4 mg of IV magnesium in the emerge ncy room, ordered another 4 mg IV for tonight. We will recheck magnesium level at 10 a.m. tonight. This is probably secondary to the frequent diarrhea that he has had. 3. Hypokalemia. Level is 3.2. We will replete with 3 runs of IV potassium as the patient is unable to tolerate p.o. at the moment. We will recheck BMP in the a.m. The patient is not having any palpi tations or heart arrhythmias at this time. 4. Diarrhea. The patient has been experiencing this for the past 2 weeks around the same time onset of his other symptoms, has taken loperamide at home with good results. We will continue that here. 5. Nicotine dependence. Normally smokes a pack a day, offered nicotine patch and nicotine gum. Str essed the importance of smoking cessation to prevent progression of is chronic obstructive pulmonary disease and to decrease irritation of his lungs while he is recovering from pneumonia as well as the other known health benefits of quitting smoking. 6. EtOH use. The patient states that he drinks no more than about 3 beers a day. Has not had anythi ng in 4 days. We do not feel that the patient requires [facility] protocol at this time though I have order ed lorazepam twice a day as needed for any signs or symptoms of withdrawal. 7. DVT prophylaxis. Lovenox. 8. Code status. Full code. 9. Condition of the patient is guarded. 10. Disposition. Admit inpatient to [address] [place] [address]. TIME SPENT: Time spent with the patient is about 60 minutes with half of that spent [id number]. [id number]/[facility] #: [id number]
[2019-05-25] MEDS: Ondansetron INJ* 2 MG/ML VIAL IV PRN (21:56)
[2019-05-25] MEDS: Acetaminophen TAB* 325 MG PO PRN (23:46)
[2019-05-25] MEDS: guaiFENesin/CODIENE 100mg/10mg 5 ML UDC PO PRN (23:46)
[2019-05-25] MEDS: Loperamide CAP* 2 MG PO PRN (23:47)
[2019-05-25] MEDS: Enoxaparin(*) 40 MG/0.4 ML SYR SUBCUT SCH (23:48)
[2019-05-25] MEDS: guaiFENesin ER TAB 600 MG PO SCH (23:48)
[2019-05-26] MEDS: KCL 20 MEQ/100 ML IVPREMIX* 20 MEQ/100 ML BAG IV SCH ×2 (00:20→04:21)
[2019-05-26] MEDS ORDERED: Nicotine Lozenge* mini 2 MG LOZNG.MINI MT PRN (01:01)
[2019-05-26] MEDS ORDERED: KCL 20 MEQ/100 ML IVPREMIX* 20 MEQ/100 ML BAG IV ONE (04:30)
[2019-05-26 05:08] LABS: ABS Basophils 0.1 10^3/ul (0-0.2); ABS Monocytes 0.6 10^3/ul (0-0.8); ABS Neutrophils 23.1 10^3/ul (1.5-7.7); Hematocrit 37 % (42-52); Hemoglobin 12.8 g/dL (14.0-18.0); Lymphocyte % 3.9 %; Mean Corpuscular HGB Conc 35 g/dL (31-36); Mean Corpuscular Hemoglobin 39 pg (27-31); Mean Corpuscular Volume 111 fL (80-94); Mean Platelet Volume 6.9 fL (7.4-10.4); Platelet Count 371 10^3/uL (150-450); Red Blood Count 3.32 10^6 /uL (4.18-5.48); Red Cell Distribution Width 18 % (10-15); White Blood Count 24.8 10^3/uL (3.5-10.8)
[2019-05-26] MEDS ORDERED: Acetaminophen TAB* 325 MG PO PRN (05:11)
[2019-05-26 05:15] LABS: BUN/Creatinine Ratio 13.4 (8-20); Calcium 7.6 mg/dL (8.6-10.3); EGFR Non-African American 97.5 (>60); Potassium 3.3 mmol/L (3.5-5.0)
[2019-05-26] MEDS: Acetaminophen TAB* 325 MG PO PRN ×3 (05:27→18:50)
[2019-05-26] MEDS ORDERED: LORazepam TAB(*) 1 MG PO SCH ×2 (06:00)
[2019-05-26] MEDS ORDERED: Potassium Chlor TAB* 20 MEQ TAB.ER PO ONE (08:07)
[2019-05-26] MEDS: Multivitamins/Minerals TAB PO SCH (08:15)
[2019-05-26] MEDS: Folic Acid TAB* 1 MG PO SCH (08:15)
[2019-05-26] MEDS: guaiFENesin ER TAB 600 MG PO SCH ×2 (08:16→21:53)
[2019-05-26] MEDS: Nicotine PATCH 21 MG/24 HR* PATCH TRANSDERM SCH (08:16)
[2019-05-26] MEDS: Thiamine TAB* 100 MG TAB PO SCH (08:16)
[2019-05-26] MEDS: SPIRIVA Respimat* (tiotropium) 2.5 mcg/inh Inhaler INH SCH (10:47)
[2019-05-26] MEDS ORDERED: Albuterol HFA INHALER* 8 gm MDI INH PRN (13:01)
[2019-05-26] MEDS: guaiFENesin/CODIENE 100mg/10mg 5 ML UDC PO PRN ×2 (13:54→21:53)
--- NOTE | 2019-05-26 14:09 | PN ---
Subjective Date of Service: 05/26/19 Interval History: Patient has productive cough but feels the cough syrup is overall helping. Has had an episode of loose stool today but stool seems more formed than at home. Denies abd pain, nausea, vomiting, fever/chills, difficulty breathing, chest pain. Objective Active Medications: Acetaminophen (Tylenol Tab*) 650 mg PO Q4H PRN PRN Reason: MILD PAIN or TEMP > 100.4 Last Admin: 05/26/19 13:53 Dose: 650 mg Albuterol (Ventolin Hfa Inhaler*) 2 puff INH Q4H PRN PRN Reason: SOB/WHEEZING Enoxaparin Sodium (Lovenox(*)) 40 mg SUBCUT 2000 [facility] Last Admin: 05/25/19 23:48 Dose: Not Given Folic Acid (Folvite Tab*) 1 mg PO DAILY [facility] Last Admin: 05/26/19 08:15 Dose: 1 mg Guaifenesin (Mucinex*) 600 mg PO BID [facility] Last Admin: 05/26/19 08:16 Dose: 600 mg Guaifenesin/Codeine Phosphate (Robitussin Ac 100mg/10mg In 5 Ml) 5 ml PO Q6H PRN PRN Reason: COUGH Last Admin: 05/26/19 13:54 Dose: 5 ml Lactated Ringer's (Lactated Ringers 1000 Ml Bag*) 1,000 mls @ 1,000 mls/hr IV .BOLUS [facility] Lactated Ringer's (Lactated Ringers 1000 Ml Bag*) 1,000 mls @ 100 mls/hr IV PER RATE [facility] Loperamide HCl (Imodium Cap*) 2 mg PO Q3H PRN PRN Reason: DIARRHEA Last Admin: 05/25/19 23:47 Dose: 2 mg Lorazepam (Ativan Tab(*)) 0 - 6 mg PO .PER [facility] PROTOCOL [facility]; Protocol Multivitamins/Minerals (Theragran/Minerals Tab*) 1 tab PO DAILY [facility] Last Admin: 05/26/19 08:15 Dose: 1 tab Nicotine (Nicotine Patch 21 Mg/24 Hr*) 1 patch TRANSDERM DAILY@0800 [facility] Last Admin: 05/26/19 08:16 Dose: 1 patch Nicotine Polacrilex (Nicotine Lozenge Mini) 2 mg MT Q2H PRN PRN Reason: CRAVING Ondansetron HCl (Zofran Inj*) 4 mg IV Q4H PRN PRN Reason: NAUSEA Last Admin: 05/25/19 21:56 Dose: 4 mg Pharmacy Profile Note (Nicotine Patch Removal Note*) 1 note PATCH OFF 2099 [facility] Thiamine HCl (Vitamin B-1 Tab*) 100 mg PO DAILY [facility] Last Admin: 05/26/19 08:16 Dose: 100 mg Tiotropium Chandler (Spiriva Respimat 2.5 Mcg) 2 puff INH DAILY [facility] Last Admin: 05/26/19 10:47 Dose: 2 puff Vital Signs - 8 hr 05/26/19 05/26/19 05/26/19 06:48 06:52 06:59 Temperature 98.9 F Pulse Rate 100 Respiratory 18 18 18 Rate Blood Pressure 109/64 (mmHg) O2 Sat by Pulse 96 Oximetry 05/26/19 05/26/19 05/26/19 07:15 09:39 11:15 Temperature 98.7 F 99.8 F Pulse Rate 100 106 Respiratory 20 20 24 Rate Blood Pressure 113/67 109/66 (mmHg) O2 Sat by Pulse 95 96 Oximetry 05/26/19 05/26/19 05/26/19 13:00 13:19 13:45 Temperature 101.5 F 102.1 F Pulse Rate 112 Respiratory 30 30 Rate Blood Pressure 117/60 (mmHg) O2 Sat by Pulse 96 Oximetry Oxygen Devices in Use Now: None Appearance: Thin, white male, who appears older than stated age, laying upright appearing in NAD Eyes: No Scleral Icterus, - - PERRL Ears/Nose/Mouth/Throat: Mucous Membranes Moist Neck: Trachea Midline Respiratory: Symmetrical Chest Expansion and Respiratory Effort, Clear to Auscultation, - - no tachypnea, not using accessory muscles with respirations Cardiovascular: NL Sounds; No Murmurs; No JVD, RRR Abdominal: - - abd soft, nontender, nondistended Extremities: No Edema, No Clubbing, Cyanosis Skin: No Rash or Ulcers Neurological: Alert and Oriented x 3, NL Muscle Strength and Tone Result Diagrams: 05/26/19 04:45 05/26/19 14:35 Microbiology and Other Data: Microbiology 05/25/19 11:50 Stool Gross Appearance - Final Stool Stool Occult Blood (DAPHNEY) - Final 05/25/19 19:35 Streptococcus pneumoniae Ag Screen - Final Urine Negative S. pneumo Antigen 05/25/19 16:35 Legionella Urinary Antigen - Final Urine Negative Legionella Antigen Assess/Plan/Problems-Billing Assessment: 53 yo white male with PMHx COPD, tobaco use, anx/depression presents with cough , n/v/d, found to have pneumonia. - Patient Problems (1) Sepsis Current Visit: Yes Status: Acute Comment: -2/2 PNA -signs of sepsis developed on the floor today after evaluation with SIRS criteria of fever and tachycardia -patient already on antibiotics but drawing blood culture per sepsis protocol, which may be of low utility -giving 1L LR bolus and monitoring tachycardia (2) Pneumonia Current Visit: Yes Status: Acute Code(s): J18.9 - PNEUMONIA, UNSPECIFIED ORGANISM SNOMED Code(s): 519650944 Comment: -CXR demonstrates consolidation in RUL -urine antigens negative, influenza negative -ceftriazone and azithromycin -good O2 sats -productive cough, ordered sputum culture (3) Diarrhea Current Visit: Yes Status: Acute Code(s): R19.7 - DIARRHEA, UNSPECIFIED SNOMED Code(s): 88134279 Comment: -per patient, stools are becoming more formed today -stool studies pending, C. diff pending (4) COPD (chronic obstructive pulmonary disease) Current Visit: Yes Status: Acute Code(s): J44.9 - CHRONIC OBSTRUCTIVE PULMONARY DISEASE, UNSPECIFIED SNOMED Code(s): 92302868 Comment: -patient is not using inhalers at home -starting spiriva, will need rescue albuterol at d/c -requested RT to provide inhaler education -no evidence of acute exacerbation at this point (5) Tobacco use Current Visit: Yes Status: Acute Code(s): Z72.0 - TOBACCO USE SNOMED Code( s): 092539334 Comment: -discussed smoking cessation -continue nicotine replacement (6) Anxiety and depression Current Visit: Yes Status: Acute Code(s): F41.9 - ANXIETY DISORDER, UNSPECIFIED; F32.9 - MAJOR DEPRESSIVE DISORDER, SINGLE EPISODE, UNSPECIFIED SNOMED Code(s): 672483483 Comment: -not on current medication -stable (7) Alcohol use Current Visit: Yes Status: Acute Code(s): Z72.89 - OTHER PROBLEMS RELATED TO LIFESTYLE SNOMED Code(s): 692723 Comment: -patient is a daily drinker of 1-2 alcoholic beverages -monitoring with [facility] protocol (8) DVT prophylaxis Current Visit: Yes Status: Acute Code(s): Z29.9 - ENCOUNTER FOR PROPHYLACTIC MEASURES, UNSPECIFIED SNOMED Code(s): 660365221 Comment: -lovenox (9) Full code status Current Visit: Yes Status: Acute Code(s): Z78.9 - OTHER SPECIFIED HEALTH STATUS SNOMED Code(s): 059470155 Status and Disposition: inpatient pending further improvement, anticipate d/c home when stable
[2019-05-26] MEDS ORDERED: Lactated Ringers 1000 ML Bag* 1,000 ML IV SCH ×2 (15:00)
[2019-05-26 15:03] LABS: BUN/Creatinine Ratio 11.1 (8-20); Calcium 7.5 mg/dL (8.6-10.3); EGFR African American 119.7 (>60); EGFR Non-African American 98.9 (>60); Potassium 3.2 mmol/L (3.5-5.0)
[2019-05-26] MEDS: cefTRIAXone(*) 1 GM in NS 0.9% 50 ML* 50 ML IVPB SCH (15:33)
[2019-05-26] MEDS: Azithromycin IV(*) 250 MG in NS 0.9% 250 ML* 250 ML IVPB SCH (16:08)
[2019-05-26] MEDS: Enoxaparin(*) 40 MG/0.4 ML SYR SUBCUT SCH (19:18)
[2019-05-26] MEDS ORDERED: Nicotine Patch Removal NOTE PATCH OFF SCH (21:00)
[2019-05-26] MEDS: Lactated Ringers 1000 ML Bag* 1,000 ML IV SCH (21:34)
[2019-05-26] MEDS: Loperamide CAP* 2 MG PO PRN (21:54)
[2019-05-27] MEDS: Acetaminophen TAB* 325 MG PO PRN ×4 (02:40→21:35)
[2019-05-27] MEDS: guaiFENesin/CODIENE 100mg/10mg 5 ML UDC PO PRN ×2 (05:10→16:01)
[2019-05-27] MEDS: Benzonatate CAP* 100 MG PO PRN ×3 (06:02→21:34)
[2019-05-27] MEDS: SPIRIVA Respimat* (tiotropium) 2.5 mcg/inh Inhaler INH SCH (07:05)
[2019-05-27] MEDS: Thiamine TAB* 100 MG TAB PO SCH (08:43)
[2019-05-27] MEDS: Nicotine PATCH 21 MG/24 HR* PATCH TRANSDERM SCH (08:43)
[2019-05-27] MEDS: Folic Acid TAB* 1 MG PO SCH (08:43)
[2019-05-27] MEDS: guaiFENesin ER TAB 600 MG PO SCH ×2 (08:44→21:36)
[2019-05-27] MEDS: Multivitamins/Minerals TAB PO SCH (08:44)
[2019-05-27 08:50] LABS: ABS Eosinophils 0.1 10^3/ul (0-0.6); ABS Monocytes 0.9 10^3/ul (0-0.8); ABS Neutrophils 17.3 10^3/ul (1.5-7.7); Eosinophil % 0.4 %; Hematocrit 33 % (42-52); Hemoglobin 11.3 g/dL (14.0-18.0); Lymphocyte % 5.3 %; Mean Corpuscular HGB Conc 35 g/dL (31-36); Mean Corpuscular Hemoglobin 39 pg (27-31); Mean Corpuscular Volume 112 fL (80-94); Platelet Count 343 10^3/uL (150-450); Red Blood Count 2.92 10^6 /uL (4.18-5.48); Red Cell Distribution Width 18 % (10-15); White Blood Count 19.3 10^3/uL (3.5-10.8)
[2019-05-27] MEDS: Lactated Ringers 1000 ML Bag* 1,000 ML IV SCH (09:00)
[2019-05-27 09:10] LABS: Albumin 2.4 g/dL (3.2-5.2); Albumin/Globulin Ratio 0.9 (1-3); BUN/Creatinine Ratio 7.6 (8-20); Calcium 7.7 mg/dL (8.6-10.3); EGFR African American 151.6 (>60); EGFR Non-African American 125.3 (>60); Globulin 2.7 g/dL (2-4); Potassium 3.3 mmol/L (3.5-5.0); Total Bilirubin 0.9 mg/dL (0.2-1.0); Total Protein 5.1 g/dL (6.4-8.9)
[2019-05-27] MEDS ORDERED: Potassium Chlor TAB* 20 MEQ TAB.ER PO ONE (14:45)
[2019-05-27] MEDS ORDERED: NS 0.9% 1000 ML** 1,000 ML IV SCH (15:00)
[2019-05-27] MEDS: cefTRIAXone(*) 1 GM in NS 0.9% 50 ML* 50 ML IVPB SCH (15:23)
[2019-05-27] MEDS: Azithromycin IV(*) 250 MG in NS 0.9% 250 ML* 250 ML IVPB SCH (16:02)
--- NOTE | 2019-05-27 17:13 | PN ---
Subjective Date of Service: 05/27/19 Interval History: Pt c/o cough and sOB when ambulating diarrhea and abd pain resolved. In the past he would have occasional blood in stool form hemorrhoids, but none noted recently. Denies melena Objective Active Medications: Acetaminophen (Tylenol Tab*) 650 mg PO Q4H PRN PRN Reason: MILD PAIN or TEMP > 100.4 Last Admin: 05/27/19 13:07 Dose: 650 mg Albuterol (Ventolin Hfa Inhaler*) 2 puff INH Q4H PRN PRN Reason: SOB/WHEEZING Benzonatate (Tessalon Cap*) 200 mg PO TID PRN PRN Reason: COUGH Last Admin: 05/27/19 14:22 Dose: 200 mg Folic Acid (Folvite Tab*) 1 mg PO DAILY [facility] Last Admin: 05/27/19 08:43 Dose: 1 mg Guaifenesin (Mucinex*) 600 mg PO BID [facility] Last Admin: 05/27/19 08:44 Dose: 600 mg Guaifenesin/Codeine Phosphate (Robitussin Ac 100mg/10mg In 5 Ml) 5 ml PO Q6H PRN PRN Reason: COUGH Last Admin: 05/27/19 16:01 Dose: 5 ml Ceftriaxone Sodium 1 gm/ (Sodium Chloride) 50 mls @ 100 mls/hr IVPB Q24H [facility] Last Admin: 05/27/19 15:23 Dose: 100 mls/hr Azithromycin 250 mg/ Sodium (Chloride) 250 mls @ 250 mls/hr IVPB Q24H [facility] Last Admin: 05/27/19 16:02 Dose: 250 mls/hr Sodium Chloride (Ns 0.9% 1000 Ml) 1,000 mls @ 100 mls/hr IV PER RATE [facility] Stop: 05/28/19 00:59 Last Admin: 05/27/19 15:19 Dose: 100 mls/hr Loperamide HCl (Imodium Cap*) 2 mg PO Q3H PRN PRN Reason: DIARRHEA Last Admin: 05/26/19 21:54 Dose: 2 mg Multivitamins/Minerals (Theragran/Minerals Tab*) 1 tab PO DAILY [facility] Last Admin: 05/27/19 08:44 Dose: 1 tab Nicotine (Nicotine Patch 21 Mg/24 Hr*) 1 patch TRANSDERM DAILY@0800 [facility] Last Admin: 05/27/19 08:43 Dose: 1 patch Nicotine Polacrilex (Nicotine Lozenge Mini) 2 mg MT Q2H PRN PRN Reason: CRAVING Last Admin: 05/26/19 14:16 Dose: 2 mg Ondansetron HCl (Zofran Inj*) 4 mg IV Q4H PRN PRN Reason: NAUSEA Last Admin: 05/25/19 21:56 Dose: 4 mg Pantoprazole Sodium (Protonix Tab*) 40 mg PO BID [facility] Thiamine HCl (Vitamin B-1 Tab*) 100 mg PO DAILY [facility] Last Admin: 05/27/19 08:43 Dose: 100 mg Tiotropium Mondamin (Spiriva Respimat 2.5 Mcg) 2 puff INH DAILY [facility] Last Admin: 05/27/19 07:05 Dose: Not Given Vital Signs - 8 hr 05/27/19 05/27/19 10:50 15:59 Temperature 98.7 F 98.2 F Pulse Rate 96 95 Respiratory 20 18 Rate Blood Pressure 98/65 122/77 (mmHg) O2 Sat by Pulse 94 98 Oximetry Oxygen Devices in Use Now: None Appearance: 53 yo m in nAD, AAOx3 Eyes: No Scleral Icterus, PERRLA Ears/Nose/Mouth/Throat: NL Teeth, Lips, Gums, Mucous Membranes Moist Neck: NL Appearance and Movements; NL JVP, Trachea Midline Respiratory: Symmetrical Chest Expansion and Respiratory Effort, - - rhonchi in RUL and RML Cardiovascular: - - tachy Abdominal: NL Sounds; No Tenderness; No Distention, No Hepatosplenomegaly Lymphatic: No Cervical Adenopathy Extremities: No Edema, No Clubbing, Cyanosis Skin: No Rash or Ulcers, No Nodules or Sclerosis Neurological: Alert and Oriented x 3, NL Muscle Strength and Tone Result Diagrams: 05/27/19 08:32 05/27/19 08:32 Microbiology and Other Data: Microbiology 05/25/19 11:50 Stool Gross Appearance - Final Stool Stool Occult Blood (DAPHNEY) - Final 05/25/19 19:35 Streptococcus pneumoniae Ag Screen - Final Urine Negative S. pneumo Antigen 05/25/19 16:35 Legionella Urinary Antigen - Final Urine Negative Legionella Antigen Assess/Plan/Problems-Billing Assessment: 53 yo white male with PMHx COPD, tobaco use, anx/depression presents with cough , n/v/d, found to have pneumonia. - Patient Problems (1) Sepsis Comment: -2/2 PNA (2) Pneumonia Comment: -CXR demonstrates consolidation in RUL -urine antigens negative, influenza negative -cont ceftriazone and azithromycin -good O2 sats -still with marked leukocytosis and tachycardia, will cont to monitor x one more day (3) Alcohol use Comment: no signs of withdrawal, d/c [facility] protocol (4) COPD (chronic obstructive pulmonary disease) Comment: -patient is not using inhalers at home -started spiriva, will need rescue albuterol at d/c -no evidence of acute exacerbation at this point (5) Diarrhea Comment: resolved, C. diff neg (6) Heme + stool Comment: no melena, h/o intermittent hematochezia from hemorrhoids will cont to monitor Start PPI BID, d/c lovenox Hb slightly lover, likely dilutional (7) DVT prophylaxis Comment: -will hold lovenox due to stool heme +. SCD's Status and Disposition: inpatient
[2019-05-27] MEDS: Pantoprazole TAB * 40 MG TAB PO SCH (21:35)
[2019-05-28 05:28] LABS: ABS Eosinophils 0.1 10^3/ul (0-0.6); ABS Lymphocytes 0.8 10^3/ul (1.0-4.8); ABS Monocytes 1.3 10^3/ul (0-0.8); Eosinophil % 0.9 %; Hematocrit 32 % (42-52); Hemoglobin 11.2 g/dL (14.0-18.0); Lymphocyte % 5.3 %; Mean Corpuscular HGB Conc 35 g/dL (31-36); Mean Corpuscular Hemoglobin 39 pg (27-31); Mean Corpuscular Volume 111 fL (80-94); Mean Platelet Volume 6.8 fL (7.4-10.4); Platelet Count 356 10^3/uL (150-450); Red Cell Distribution Width 18 % (10-15); White Blood Count 15.3 10^3/uL (3.5-10.8)
[2019-05-28 05:44] LABS: BUN/Creatinine Ratio 4.9 (8-20); Calcium 7.7 mg/dL (8.6-10.3); EGFR African American 166.1 (>60); EGFR Non-African American 137.2 (>60); Potassium 3.2 mmol/L (3.5-5.0)
[2019-05-28] MEDS ORDERED: Potassium Chlor TAB* 20 MEQ TAB.ER PO ONE (07:21)
[2019-05-28] MEDS: Ondansetron INJ* 2 MG/ML VIAL IV PRN (07:35)
[2019-05-28] MEDS: guaiFENesin ER TAB 600 MG PO SCH (07:35)
[2019-05-28] MEDS: Benzonatate CAP* 100 MG PO PRN (07:35)
[2019-05-28] MEDS: Folic Acid TAB* 1 MG PO SCH (07:36)
[2019-05-28] MEDS: Pantoprazole TAB * 40 MG TAB PO SCH (07:36)
[2019-05-28] MEDS: Acetaminophen TAB* 325 MG PO PRN (07:36)
[2019-05-28] MEDS: Thiamine TAB* 100 MG TAB PO SCH (07:38)
[2019-05-28] MEDS: Nicotine PATCH 21 MG/24 HR* PATCH TRANSDERM SCH (07:38)
[2019-05-28] MEDS: Multivitamins/Minerals TAB PO SCH (07:38)
[2019-05-28 08:02] VITALS: BP 120/69
[2019-05-28] MEDS: SPIRIVA Respimat* (tiotropium) 2.5 mcg/inh Inhaler INH SCH (08:13)
[2019-05-28] MEDS ORDERED: Influenza VAC *QUAD* 2019-20* 0.5 ML SYRINGE IM ONE (09:00)
--- NOTE | 2019-05-28 12:04 | DS ---
CC: Dr. Astorga* DISCHARGE SUMMARY: DATE OF ADMISSION: 05/25/19 DATE OF DISCHARGE: 05/28/19 PRIMARY CARE PROVIDER: Dr. Astorga. DISPOSITION AT DISCHARGE: Home. CONDITION ON DISCHARGE: Stable. DISCHARGE DIAGNOSES: 1. Sepsis due to right upper lobe pneumonia. 2. Transient elevation of LFTs and gallbladder sludge on gallbladder ultrasound , likely related to passed gallbladder stone. 3. Likely chronic obstructive pulmonary disease. SECONDARY DIAGNOSES: 1. History of anxiety. 2. History of gastrointestinal bleed. 3. History of migraines. 4. Anemia. 5. Benign neoplasm of the colon remotely. 6. Alcohol abuse. 7. Tobacco abuse. MEDICATIONS AT DISCHARGE: Include: 1. Albuterol inhaler 2 puffs every 4 hours p.r.n. 2. Azithromycin 250 mg daily for 2 days and stop. 3. Cefdinir 300 mg b.i.d. for a total of 4 days. 4. Mucinex ER 600 mg b.i.d. p.r.n. 5. Multivitamin 1 tablet daily. LABORATORY DATA AND STUDIES PERFORMED DURING HIS HOSPITAL STAY: On 05/28/19: Sodium of 130, potassium 3.2, chloride 101, carbon dioxide 22, BUN 6, creatinine 0.61. The patient's liver function tests last obtained on 05/27/19 showed total bilirubin of 0.9, AST of 15, ALT of 14. Alkaline phosphatase of 85. Hematology studies on 05/28/19: White blood cell count of 15.3, hemoglobin 11.2 , hematocrit of 32, MCV of 111, and platelets of 356. Initially, the patient's stool occult was positive for blood. Second time, it was checked on 05/27/19, after the patient's diarrhea resolved, his stool occult was negative. Stool for C. diff was negative at admission. Urine was negative for Strep pneumo antigen and legionella antigen. The patient's gallbladder ultrasound obtained at admission, impression: "There is a focal area of increased echogenicity within the gallbladder suggestive of sludge or non-shadowing calculus. There is mild gallbladder wall thickening, which is likely due to incomplete distention, most likely cholecystitis. The liver has increased echogenicity consistent with diffuse hepatocellular disease most commonly associated with fatty infiltration." Chest x-ray, impression: "Elevated lung volumes and patchy interstitial markings. Alveolar consolidation in the distribution of the anterior and apical segments of the right upper lobe consistent with pneumonia given the clinical context. Negative for pleural effusion or pneumothorax. The heart, pulmonary vasculature, and mediastinal contours are unremarkable. Followup after therapy suggested to assess for resolution and exclude an underlying neoplastic process. Stigmata of obstructive lung disease." The patient's blood cultures were negative. HOSPITALIZATION COURSE: Sherif Abbott is a 53-year-old male with a history of smoking approximately a pack a day and drinking 2 to 3 beers a day, who presented to hospital complaining of cough and shortness of breath. The patient has marked leukocytosis with white blood cell count of 20,000 on presentation. The patient also was complaining of right upper quadrant pain and diarrhea and was noted to have bilirubin at 2.8 at admission. The gallbladder ultrasound showed gallbladder sludge. The patient's abdominal pain and diarrhea resolved throughout his hospital stay and it is suspected that the patient could have passed a gallbladder stone. He was slightly hyponatremic and that was improving with intravenous fluids, and by the time of discharge, the patient's sodium was up to 130. His leukocytosis started resolving with a white blood cell count of 15,000 by the time of discharge. He was noted to have wheezes and prescribed albuterol inhaler with good results. He likely has an underlying COPD. By the time of discharge, he was ambulating without any need of oxygen. He still complained of some cough. He is going to be discharged home to complete 7 days of third generation cephalosporin and 5 days of azithromycin. He is recommended to follow up with his primary care provider in 4 to 7 days. PHYSICAL EXAM AT THE TIME OF DISCHARGE: Blood pressure of 120/69, heart rate of 90 and regular, respiratory rate 20, oxygen saturation 94% on room air, temperature 97.5. General: The patient is a pleasant 53-year-old male, who is in no acute distress. Alert and oriented x3. HEENT: Head: Atraumatic and normocephalic. Eyes: Pupils are equal, round, and reactive to light and accommodation. Oropharynx clear. Mucosa moist. Neck: Supple. No JVD. No bruits bilaterally. Cardiovascular: Regular rate and rhythm. No murmur. Respiratory: The patient has rhonchi at the right upper and right middle lungs on auscultation. Abdomen: Soft, nontender. Bowel sounds present in all 4 quadrants. Extremities: There is no edema. Pulses are +2 bilaterally. There is no clubbing or cyanosis. On evaluation of the skin, no problematic areas or rashes noted. Please also note that the patient still was heme-positive at admission when he had large amount of diarrhea. He was heme-negative by the time of discharge. His hemoglobin decreased slightly throughout his hospital stay, but that is likely dilutional. Please note that this is a short summary of the patient's hospitalization. Please refer to further medical records for details. TIME SPENT: Approximately 45 minutes was spent on the patient's discharge. [id number]/[facility] #: [id number] [facility]
== END 2019-05-28 11:18 | disposition home or self-care (01) | DRG 871 ==
LOC: ED 13:36 → MEDTELE 18:38 → OBSVTOIN 05-27 11:00
PROVIDERS: ADMIT Internal Medicine; ATTEND Internal Medicine
DX: A41.9 Sepsis, unspecified organism (principal); J18.9 Pneumonia, unspecified organism; E87.1 Hypo-osmolality and hyponatremia; J44.0 Chronic obstructive pulmonary disease with (acute) lower respiratory infection; H91.91 Unspecified hearing loss, right ear; F41.9 Anxiety disorder, unspecified; F17.210 Nicotine dependence, cigarettes, uncomplicated; K80.20 Calculus of gallbladder without cholecystitis without obstruction; F32.9 Major depressive disorder, single episode, unspecified; G43.909 Migraine, unspecified, not intractable, without status migrainosus; G58.8 Other specified mononeuropathies; R65.20 Severe sepsis without septic shock; E83.42 Hypomagnesemia; R19.7 Diarrhea, unspecified; E87.6 Hypokalemia; K64.9 Unspecified hemorrhoids; F10.10 Alcohol abuse, uncomplicated; Y90.9 Presence of alcohol in blood, level not specified; Z97.4 Presence of external hearing-aid; Z79.899 Other long term (current) drug therapy
CPT/HCPCS: 36415; 71046; 76705; 80048; 80053; 82272; 83605; 83630; 83735; 85025; 87040; 87070; 87205; 87328; 87329; 87493; 87651; 87899; 93005; 94640; 96361; 96365; 99285; A9270-GY; G0378; J0456; J0696; J1650; J2405; J3475; J3480; J3535